=== PATIENT | female | born 1995 | race African-American/Black ===

== ENCOUNTER 2020-05-20 09:13 | Inpatient (IN) | payer MEDICAID ==
[2020-05-20] MEDS ORDERED: OXYTOCIN/0.9 % SODIUM CHLORIDE 30 UNIT/500 ML RTUINJ IV PRN (09:25)
[2020-05-20] MEDS ORDERED: PENICILLIN G POTASSIUM 5,000,000 UNIT in DEXTROSE 5%-WATER 100 ML IV ONE (09:25)
[2020-05-20] MEDS ORDERED: RINGERS SOLUTION,LACTATED 1,000 ML IV ONE (09:25)
[2020-05-20] MEDS ORDERED: PENICILLIN G-K 5 MILLION UNIT VIAL ONE ×2 (10:02→14:07)
[2020-05-20] MEDS ORDERED: OXYTOCIN/0.9 % SODIUM CHLORIDE 30 UNIT/500 ML RTUINJ ONE (10:02)
[2020-05-20] MEDS ORDERED: MISOPROSTOL 0.2 MG TABLET ONE (10:02)
[2020-05-20] MEDS ORDERED: LIDOCAINE 1% INJ-PF (10 MG/ML) 30 ML SDV ONE (10:02)
[2020-05-20] MEDS ORDERED: OXYTOCIN 10 UNIT/ML VIAL ONE (10:02)
[2020-05-20] MEDS: RINGERS SOLUTION,LACTATED 1,000 ML IV PRN ×2 (10:06→14:00)
[2020-05-20 10:15] LABS: ABSOLUTE EOSINOPHILS # (AUTO) 0.2 10^3/uL (0.0-0.6); ABSOLUTE LYMPHOCYTES (AUTO) 1.9 10^3/uL (0.5-4.7); ABSOLUTE MONOCYTES (AUTO) 0.6 10^3/uL (0.1-1.4); ABSOLUTE NEUT (AUTO) 5.1 10^3/uL (1.7-8.2); BASOPHILS % (AUTO) 0.5 % (0-2); EOSINOPHILS % (AUTO) 2.2 % (0-6); HEMATOCRIT 37.4 % (36.0-47.0); HEMOGLOBIN 12.9 g/dL (12.0-15.5); LYMPHOCYTES % (AUTO) 23.8 % (13-45); MEAN CORPUSCULAR HEMOGLOBIN 30.8 pg (27.0-33.4); MEAN CORPUSCULAR HGB CONC 34.6 g/dL (32.0-36.0); MEAN CORPUSCULAR VOLUME 89 fl (80-97); MONOCYTES % (AUTO) 7.8 % (3-13); PLATELET COUNT 169 10^3/uL (150-450); RED CELL DISTRIBUTION WIDTH 13.3 % (11.5-14.0); SEGMENTED NEUTROPHILS % (AUTO) 65.7 % (42-78); TOTAL CELLS COUNTED % (AUTO) 100 %; WHITE BLOOD COUNT 7.8 10^3/uL (4.0-10.5)
[2020-05-20 10:43] LABS: APPEARANCE,URINE CLOUDY; BILIRUBIN,URINE NEGATIVE (NEGATIVE); COLOR,URINE RED; GLUCOSE, URINE NEGATIVE (NEGATIVE); KETONES,URINE NEGATIVE (NEGATIVE); LEUKOCYTE ESTERASE,URINE LARGE (NEGATIVE); NITRITE,URINE NEGATIVE (NEGATIVE); PROTEIN,URINE 30 mg/dL (NEGATIVE); URINE SPECIFIC GRAVITY 1.012; UROBILINOGEN,URINE NEGATIVE mg/dL (<2.0)
[2020-05-20 11:04] LABS: URINE AMPHETAMINES SCREEN NEGATIVE; URINE BARBITURATES SCREEN NEGATIVE; URINE BENZODIAZEPINES SCREEN NEGATIVE; URINE COCAINE SCREEN NEGATIVE; URINE MARIJUANA (THC) SCREEN NEGATIVE; URINE METHADONE SCREEN NEGATIVE; URINE PHENCYCLIDINE SCREEN NEGATIVE
--- NOTE | 2020-05-20 11:15 | Warning Signs in Babies ---
VOD Warning Signs Datetime Report Generated by [facility]: 05/20/2020 11:15 VOD#608 -Warning Signs in Babies: Viewed with Parent(s)/Family (05/20/2020 11:14:Al Lau RN)
--- NOTE | 2020-05-20 13:44 | Admission Physical ---
Datetime Report Generated by CPN: 05/20/2020 13:44 CURRENT ADMISSION Chief Complaint: Scheduled Induction of Labor Indication for Induction: IUGR Indication for Induction- Other: 9% Admit Impression : Term, Intrauterine Admit Plan: Admit to Unit; Initiate Labor Induction Protocol ALLERGIES Medication Allergies: No Medication Allergies: No Known Allergies (05/23/2014) Latex: No Latex Allergies Food Allergies: none Environmental Allergies: none OBSTETRICAL HISTORY EDC: 05/21/2020 00:00 : 1 Para: 0 Term: 0 : 0 SAB: 0 IAB: 0 Ectopic: 0 Livin Cesareans: 0 VBACs: 0 Multiple Births: 0 Gestational Diabetes: No Rh Sensitization: No Incompetent Cervix: No KENNETH: No Infertility: No ART Treatment: No Uterine Anomaly: No IUGR: Yes Hx Previous C/S: No Macrosomia: No Hx Loss/Stillborn: No PIH: No Hx : No Placenta Previa/Abruption: No Depression/PP Depression: Yes PTL/PROM: No Post Hemorrhage: No Current Procedures: Ultrasound Obstetrical History Comments: G1-Current SEE RECORDS Alcohol: No Marijuana : No Cocaine: No Other Illicit Drugs: No Cigarettes: Former Smoker. [id number] MEDICAL HISTORY Diabetes: No Blood Transfusion: No Pulmonary Disease (Asthma, TB): Yes Breast Disease: No Hypertension: No Leacher Surgery: No Heart Disease: No Hosp/Surgery: No Autoimmune Disorder: No Anesthetic Complications: No Kidney Disease: No Abnormal Pap Smear: No Neuro/Epilepsy: No Psychiatric Disorders: No Other Medical Diseases: No Hepatitis/Liver Disease: No Significant Family History: No Varicosities/Phlebitis: No Trauma/Violence : No Thyroid Dysfunction: No INFECTIOUS HISTORY Gonorrhea: Yes Genital Herpes: No Chlamydia: Yes Tuberculosis: No Syphilis: No Hepatitis: No HIV/AIDS Exposure: No Rash or Viral Illness: No HPV: No Infectious History Comments: /Chl PHYSICAL EXAM General: Normal HEENT: Normal Neurologic: Normal Thyroid: Normal Heart: Normal Lungs: Normal Breast: Normal Back: Normal Abdomen: Normal Genitourinary Exam: Normal Extremities: Normal DTRs: Normal Pelvic Type: Adequate Vital Signs: Reviewed; Within Normal Limits VAGINAL EXAM Dilatation: 3 Effacement: 75 Station: -2 MEMBRANES Pooling: Negative Membranes: Intact FETUS A EGA: 39.6 Monitoring: External US FHR- Baseline: 130 Variability: Moderate 6-25bpm Accelerations: 15X15 Decelerations: None FHR Category: Category I Estimated Weight (gm): 2900 Presentation: Vertex PLANS FOR LABOR AND DELIVERY Labor and Delivery: None Pain Management: Natural Feeding Preference: Breast Benefit of Breast Feed Discussed: Yes Circumcision: N/A INFORMED CONSENT Signature: with User ID: [email or web address]
[2020-05-20] MEDS: PENICILLIN G POTASSIUM 2,500,000 UNIT in DEXTROSE 5%-WATER 50 ML IV SCH ×2 (14:27→18:55)
[2020-05-20] MEDS ORDERED: DINOPROSTONE 10 MG VAGINAL INSERT.SR PV ONE (20:46)
[2020-05-20] MEDS ORDERED: ZOLPIDEM TARTRATE 5 MG TABLET PO PRN (20:47)
[2020-05-20] MEDS ORDERED: DINOPROSTONE 10 MG VAGINAL INSERT.SR ONE (22:52)
[2020-05-21] MEDS: RINGERS SOLUTION,LACTATED 1,000 ML IV PRN ×4 (04:26→17:12)
[2020-05-21] MEDS ORDERED: MISOPROSTOL 0.1 MG TABLET PO ONE (06:46)
[2020-05-21] MEDS ORDERED: MISOPROSTOL 0.1 MG TABLET PV ONE (06:47)
[2020-05-21] MEDS: PENICILLIN G POTASSIUM 2,500,000 UNIT in DEXTROSE 5%-WATER 50 ML IV SCH (07:14)
[2020-05-21] MEDS ORDERED: OXYTOCIN/0.9 % SODIUM CHLORIDE 0 UNIT/0 ML RTUINJ ONE (07:38)
[2020-05-21] MEDS ORDERED: MISOPROSTOL 0.1 MG TABLET ONE (09:14)
[2020-05-21] MEDS ORDERED: ACETAMINOPHEN 325 MG TABLET PO ONE (10:50)
[2020-05-21] MEDS ORDERED: ACETAMINOPHEN 325 MG TABLET ONE (10:52)
[2020-05-21] MEDS ORDERED: CITRIC ACID/SODIUM CITRATE ORAL SOLN 15 ML UDCUP ONE (12:46)
[2020-05-21] MEDS ORDERED: CEFAZOLIN 1 GM/D5W RTU 1 GM/50 ML RTUPB IV ONE (12:46)
[2020-05-21] MEDS ORDERED: OXYTOCIN 10 UNIT/ML VIAL ONE (13:53)
[2020-05-21] MEDS ORDERED: FENTANYL CITRATE INJ/PF 100 MCG/2 ML AMPUL ONE (13:53)
[2020-05-21] MEDS ORDERED: OXYTOCIN/0.9 % SODIUM CHLORIDE 30 UNIT/500 ML RTUINJ ONE (13:53)
[2020-05-21] MEDS ORDERED: ACETAMINOPHEN 1,000 MG/100 ML RTUPB IV ONE (13:54)
[2020-05-21] MEDS ORDERED: ONDANSETRON HCL INJ/PF 4 MG/2 ML SDV ONE (13:54)
[2020-05-21] MEDS ORDERED: ACETAMINOPHEN 325 MG TABLET PO PRN (15:23)
[2020-05-21] MEDS ORDERED: PROMETHAZINE HCL INJ 25 MG/1 ML VIAL IV PRN (15:23)
[2020-05-21] MEDS ORDERED: OXYCODONE-ACETAMINOPHEN 5-325 MG TABLET PO PRN ×2 (15:23)
[2020-05-21] MEDS ORDERED: DIPH/PERTUSS(ACELL)/TETANUS VAC/PF 0.5 ML SYR (>=10YO) IM PRN (15:23)
[2020-05-21] MEDS ORDERED: ACETAMINOPHEN 1,000 MG/100 ML RTUPB IV PRN (15:23)
[2020-05-21] MEDS ORDERED: OXYTOCIN/0.9 % SODIUM CHLORIDE 30 UNIT/500 ML RTUINJ IV PRN (15:23)
[2020-05-21] MEDS ORDERED: RINGERS SOLUTION,LACTATED 1,000 ML IV PRN (15:23)
[2020-05-21] MEDS ORDERED: SIMETHICONE 80 MG TAB.CHEW PO PRN (15:23)
[2020-05-21] MEDS ORDERED: MEASLES,MUMPS&RUBELLA VACC/PF 0.5 ML VIAL SUBCUT PRN (15:23)
--- NOTE | 2020-05-21 15:28 | Operative Report ---
Operative Report DATE OF SURGERY: 05/21/20 PREOPERATIVE DIAGNOSIS: IUP at 40 weeks and 0 days, IUGR, failed induction, non reassuring heart tones OPERATION: Primary low transverse hysterotomy section SURGEON: JOEY POOL ANESTHESIA: Spinal COMPLICATIONS: None QUANTITATIVE BLOOD LOSS: 1,035 INTRAOPERATIVE FINDINGS: Female cephalic presentation Apgars of 8 and 9 PROCEDURE: PROCEDURE IN DETAIL: The patient was taken to the operating room, prepared and draped in a normal sterile fashion in a supine position with a leftward tilt. A transverse skin incision was made with a scalpel and carried through to the underlying layer of fascia with the same scalpel. The fascia was excised in the midline and extended laterally with [place]. The fascia was then dissected from the rectus muscle sharply with [place] and the rectus muscle was divided and the peritoneal cavity was entered sharply with the same Metzenbaum. With good visualization of the bladder and the uterus the bladder blade was inserted. The hysterotomy was nicked with a scalpel and extended laterally with surgeon finger fraction. The was then delivered atraumatically. The nose and mouth were suctioned with a suction bulb, the cord was clamped and cut and handed off to awaiting pediatricians. Cord blood was collected. The placenta was removed manually. The uterus was exteriorized and cleared of clots and debris. The hysterotomy was closed with 0 Monocryl in a running, locked fashion. A second layer of the same suture was used to imbricate to ensure hemostasis. The uterus was returned to the abdomen and peritoneal cavity was cleared of clots and debris. The rectus muscle and peritoneum were repaired with mattress stitch of 2-0 Chromic. The fascia was closed with 0-Vicryl. The subcutaneous layer was closed with plain catgut and the skin was closed with 4-0 Vicryl. The patient tolerated the procedure well. Sponge, lap, and needle counts correct x2 and the patient was taken to recovery in stable condition.
[2020-05-21] MEDS ORDERED: MORPHINE SULFATE 10 MG/ML INJ ONE (17:05)
[2020-05-21] MEDS: MORPHINE SULFATE 10 MG/ML INJ IV PRN ×2 (17:06→22:37)
[2020-05-21] MEDS: DOCUSATE SODIUM 100 MG CAPSULE PO SCH (18:11)
[2020-05-21] MEDS: KETOROLAC TROMETHAMINE INJ/PF 30 MG/1 ML SDV IV SCH (21:23)
[2020-05-22] MEDS: KETOROLAC TROMETHAMINE INJ/PF 30 MG/1 ML SDV IV SCH (06:15)
[2020-05-22 07:24] LABS: HEMATOCRIT 31.8 % (36.0-47.0); MEAN CORPUSCULAR HEMOGLOBIN 30.8 pg (27.0-33.4); MEAN CORPUSCULAR HGB CONC 34.6 g/dL (32.0-36.0); MEAN CORPUSCULAR VOLUME 89 fl (80-97); PLATELET COUNT 139 10^3/uL (150-450); RED BLOOD COUNT 3.57 10^6/uL (3.72-5.28); RED CELL DISTRIBUTION WIDTH 13.1 % (11.5-14.0); WHITE BLOOD COUNT 8.1 10^3/uL (4.0-10.5)
[2020-05-22] MEDS ORDERED: MEASLES,MUMPS&RUBELLA VACC/PF 0.5 ML VIAL SUBCUT PRN (08:00)
[2020-05-22] MEDS ORDERED: DIPH/PERTUSS(ACELL)/TETANUS VAC/PF 0.5 ML SYR (>=10YO) IM PRN (08:00)
[2020-05-22] MEDS ORDERED: PROMETHAZINE HCL INJ 25 MG/1 ML VIAL IV PRN (08:00)
[2020-05-22] MEDS: PRENATAL VITAMIN W DHA CAPSULE PO SCH (10:13)
[2020-05-22] MEDS: DOCUSATE SODIUM 100 MG CAPSULE PO SCH ×2 (10:13→17:34)
[2020-05-22] MEDS: IBUPROFEN 800 MG TABLET PO SCH ×3 (13:35→23:39)
[2020-05-23] MEDS: IBUPROFEN 800 MG TABLET PO SCH ×2 (05:00→11:50)
[2020-05-23] MEDS: DOCUSATE SODIUM 100 MG CAPSULE PO SCH (10:00)
[2020-05-23] MEDS: PRENATAL VITAMIN W DHA CAPSULE PO SCH (10:00)
[2020-05-23 13:23] VITALS: BP 126/76
--- NOTE | 2020-05-23 13:23 | PDOC DISCHARGE SUMMARY ---
Impression - Admit/DC Date/PCP Admission Date/Primary Care Provider: 05/20/20 09:13 JOEY POOL MD Discharge Date: 05/23/20 - Discharge Diagnosis (1) IUGR (intrauterine growth restriction) Is this a current diagnosis for this admission?: Yes (2) S/P primary low transverse Is this a current diagnosis for this admission?: Yes - Additional Information Discharge Diet: Regular Discharge Activity: Balance Activity w/Rest, No Lifting Over 10 Pounds, No Lifting/Push/Pulling, Pelvic Rest, No tub bath Referrals: [facility] [Provider Group] (Follow up in 1 week for Incision check. Call the office and make an appointment. ) Prescriptions: Ibuprofen [Motrin 800 mg Tablet] 800 mg PO Q8HP PRN #60 tablet PRN Reason: Oxycodone HCl/Acetaminophen [Percocet 5-325 mg Tablet] 1 tab PO Q4HP PRN #30 tablet PRN Reason: Vit/Dha [ Multi + Dha Capsule] 1 cap PO DAILY #90 capsule Home Medications: Ibuprofen [Motrin 800 mg Tablet] 800 mg PO Q8HP PRN #60 tablet 05/23/20 Oxycodone HCl/Acetaminophen [Percocet 5-325 mg Tablet] 1 tab PO Q4HP PRN #30 tablet 05/23/20 Vit/Dha [ Multi + Dha Capsule] 1 cap PO DAILY #90 capsule 05/23/20 Hospital Course 59. Maternal Morbidity (serious complications experinced by the mother associated with labor and delivery: None of the above Results Laboratory Results: WBC 8.1 10^3/uL (4.0-10.5) 05/22/20 06:41 RBC 3.57 10^6/uL (3.72-5.28) L 05/22/20 06:41 Hgb 11.0 g/dL (12.0-15.5) L 05/22/20 06:41 Hct 31.8 % (36.0-47.0) L 05/22/20 06:41 MCV 89 fl (80-97) 05/22/20 06:41 MCH 30.8 pg (27.0-33.4) 05/22/20 06:41 MCHC 34.6 g/dL (32.0-36.0) 05/22/20 06:41 RDW 13.1 % (11.5-14.0) 05/22/20 06:41 Plt Count 139 10^3/uL (150-450) L 05/22/20 06:41 Lymph % (Auto) 23.8 % (13-45) 05/20/20 09:45 [place] % (Auto) 7.8 % (3-13) 05/20/20 09:45 Eos % (Auto) 2.2 % (0-6) 05/20/20 09:45 Baso % (Auto) 0.5 % (0-2) 05/20/20 09:45 Absolute Neuts (auto) 5.1 10^3/uL (1.7-8.2) 05/20/20 09:45 Absolute Lymphs (auto) 1.9 10^3/uL (0.5-4.7) 05/20/20 09:45 Absolute Monos (auto) 0.6 10^3/uL (0.1-1.4) 05/20/20 09:45 Absolute Eos (auto) 0.2 10^3/uL (0.0-0.6) 05/20/20 09:45 Absolute Basos (auto) 0.0 10^3/uL (0.0-0.2) 05/20/20 09:45 Seg Neutrophils % 65.7 % (42-78) 05/20/20 09:45 Urine Color RED 05/20/20 09:21 Urine Appearance CLOUDY 05/20/20 09:21 Urine pH 6.0 (5.0-9.0) 05/20/20 09:21 Ur Specific [place] 1.012 05/20/20 09:21 Urine Protein 30 mg/dL (NEGATIVE) H 05/20/20 09:21 Urine Glucose (UA) NEGATIVE mg/dL (NEGATIVE) 05/20/20 09:21 Urine Ketones NEGATIVE mg/dL (NEGATIVE) 05/20/20 09:21 Urine Blood SMALL (NEGATIVE) H 05/20/20 09:21 Urine Nitrite NEGATIVE (NEGATIVE) 05/20/20 09:21 Urine Bilirubin NEGATIVE (NEGATIVE) 05/20/20 09:21 Urine Urobilinogen NEGATIVE mg/dL (<2.0) 05/20/20 09:21 Ur Leukocyte Esterase LARGE (NEGATIVE) H 05/20/20 09:21 Urine Ascorbic Acid 20 (NEGATIVE) H 05/20/20 09:21 Urine Opiates Screen NEGATIVE 05/20/20 09:21 Urine Methadone Screen NEGATIVE 05/20/20 09:21 Ur Barbiturates Screen NEGATIVE 05/20/20 09:21 Ur Phencyclidine Scrn NEGATIVE 05/20/20 09:21 Ur Amphetamines Screen NEGATIVE 05/20/20 09:21 U Benzodiazepines Scrn NEGATIVE 05/20/20 09:21 Urine Cocaine Screen NEGATIVE 05/20/20 09:21 U Marijuana (THC) Screen NEGATIVE 05/20/20 09:21 RPR NONREACTIVE (NONREACTIVE) 05/20/20 09:45 Blood Type O POSITIVE 05/20/20 09:45 Antibody Screen NEGATIVE 05/20/20 09:45 Plan Plan of Treatment: follow up in one week for incision check at [facility]
--- NOTE | 2020-05-24 11:33 | Delivery Summary ---
Del Sum A-C Datetime Report Generated by CPN: 05/24/2020 11:32 DELIVERY PERSONNEL DELIVERY PERSONNEL: [id number] Delivery Doctor:: Kimmie Leong MD Delivery Doctor:: Kimmie Leong MD FAMILY PRESERVATION CASEWORKER:: Alethea Dowd FAMILY PRESERVATION CASEWORKER Flight Operations Inspector:: Al Lau RN Flight Operations Inspector:: Al Lau RN Neonatal Nurse Practitioner:: MARIPOSA Short Nursery Nurse:: LEEANN Plascencia Tech/MANUFACTURING TECHNOLOGY ANALYST: Shey King, SHRIMP CLEANER MATERNAL INFORMATION Delivery Anesthesia: None Medications After Delivery: Pitocin 30 Units in 500ml NS/D5W Delivery QBL: 135 Maternal Complications: None LABOR SUMMARY EDC: 05/21/2020 00:00 No. Babies in Womb: 1 Attempted: No Labor Anesthesia: Intrathecal LABOR INFORMATION Reason for Induction: Intrauterine Growth Retardation Cervical Ripening Agents: Cytotec @ 0.025 Cervical Ripening Agents: Cytotec @ 0.05 Cervical Ripening Agents: Cervidil Oxytocin: Induction Group B Beta Strep: Positive Antibiotics # of Doses: 3 Antibiotics Time of Last Dose: 05/20/2020 18:55 Name of Antibiotic Given: Penicillin Steroids Given: None Reason Steroids Not Administered: Not Applicable MEMBRANES Membranes Rupture Method: Artificial Rupture of Membranes: 05/21/2020 14:49 Length of Rupture (hr): 0.03 Amniotic Fluid Color: Clear Amniotic Fluid Amount: Small Amniotic Fluid Odor: Normal STAGES OF LABOR Stage 3 hr: 0 Stage 3 min: 2 VAGINAL DELIVERY Episiotomy: None Laceration #1: None Laceration Extension #1: N/A Laceration Repair: Not Applicable Sponge Count Correct: N/A Sharps Count Correct: N/A CSECTION DELIVERY Primary Indication: Nonreassuring Status Secondary Indication: Failed Induction CSection Urgency: Non-Scheduled CSection Incidence: Primary Labor: Labor Elective: Nonelective CSection Incision: Lower Uterine Transverse CSection Incision: Lower Uterine Transverse BABY A INFORMATION Delivery Date/Time: 05/21/2020 14:51 Method of Delivery: Nurse Controlled Delivery: No Born in Route : No : N/A Forceps: N/A Vacuum Extraction: N/A Shoulder Dystocia : No PRESENTATION/POSITION BABY A Presentation: Cephalic Presentation: Cephalic Cephalic Presentation: Vertex Breech Presentation: N/A PLACENTA INFORMATION BABY A Placenta Delivery Time : 05/21/2020 14:53 Placenta Method of Delivery: Manual Removal Placenta Status: Delivered SCORES BABY A Heart Rate 1 min: >100 bpm Resp Effort 1 min: Good Cry Reflex Irritability 1 min: Cough or Sneeze or Pulls Away Muscle Tone 1 min: Active Motion Color 1 min: Body [place], Extremities Blue Resuscitation Effort 1 min: Tactile Stimulation SCORE 1 MIN: 9 Heart Rate 5 min: >100 bpm Resp Effort 5 min: Good Cry Reflex Irritability 5 min: Cough or Sneeze or Pulls Away Muscle Tone 5 min: Active Motion Color 5 min: Body [place], Extremities Blue Resuscitation Effort 5 min: N/A SCORE 5 MIN: 9 INFANT INFORMATION BABY A Gestational Age at Delivery: 40.0 Gestational Status: Full Term- 39- 40.6 Weeks Outcome : Liveborn Condition : Stable Infant Sex: Female IDENTIFICATION BABY A Verification Date/Time: 05/21/2020 14:45 ID Band Number: [id number] Mother's Name Verified: Yes Infant RN Verifying : Shilortin,RN Additional Verifying Personnel: LEEANN Watson WEIGHT/LENGTH BABY A Infant Birthweight (gm): 2935 Weight (lb): 6 Infant Weight (oz): 8 Infant Length (in): 19.00 Length (cm): 48.26 CORD INFORMATION BABY A No. Cord Vessels: 3 Nuchal Cord : N/A Cord Blood Taken: Yes-For Eval (Mom's Blood Type - or O+) Suction: None ASSESSMENT BABY A Physical Findings at Delivery: Within Normal Limits Infant Respirations: Appears Normal Skin to Skin: Yes Skin to Skin Time (min): 5 Garment Form Assembler/ALS Called : No Infant Care By: MARIPOSA Canas/J Carlos Arango RN Transferred To: Nursery BABY B INFORMATION : N/A
== END 2020-05-23 14:05 | disposition home or self-care (01) | DRG 807 ==
LOC: LR 09:13 → 2S 05-21 17:49
PROVIDERS: ADMIT Obstetrics & Gynecology; ATTEND Obstetrics & Gynecology
PROC: 10E0XZZ Delivery of Products of Conception, External Approach (ICD-10-PCS; principal; 2020-05-21)
PROC: 3E033VJ Introduction of Other Hormone into Peripheral Vein, Percutaneous Approach (ICD-10-PCS; 2020-05-21)
PROC: 10907ZC Drainage of Amniotic Fluid, Therapeutic from Products of Conception, Via Natural or Artificial Opening (ICD-10-PCS; 2020-05-21)
DX: O36.5930 Maternal care for other known or suspected poor fetal growth, third trimester, not applicable or unspecified (principal); Z37.0 Single live birth; O61.9 Failed induction of labor, unspecified; O76 Abnormality in fetal heart rate and rhythm complicating labor and delivery; O99.824 Streptococcus B carrier state complicating childbirth; Z11.59 Encounter for screening for other viral diseases; Z87.891 Personal history of nicotine dependence; Z3A.40 40 weeks gestation of pregnancy
CPT/HCPCS: 1961; 36415; 80307; 81005; 85025; 85027; 86592; 86850; 86900; 86901; 94760; 94799; 99140; J0131; J0690; J1885; J2270; J2405; J2540; J2590; J3010; J3490; J7060